=== PATIENT | male | born 1990 ===

== ENCOUNTER 2021-06-06 19:01 | Emergency (ER) | payer OTHER, SELFPAY ==
--- NOTE | 2021-06-06 19:17 | PC.NURSE ---
Called back for triage at this time, no response.
--- NOTE | 2021-06-06 19:41 | PC.NURSE ---
Pt called back for triage, no response at this time.
== END 2021-06-06 19:53 | disposition left against medical advice (07) ==
LOC: ANHED 19:50
DX: Z53.21 Procedure and treatment not carried out due to patient leaving prior to being seen by health care provider (principal)
CPT/HCPCS: 99199